=== PATIENT | male | born 1965 | race Caucasian/White ===

== ENCOUNTER 2022-01-24 10:36 | Emergency (ER) | payer OTHER ==
[~2022-01-24] VITALS: Ht 177.8 cm; Wt 113.6 kg
[2022-01-24] MEDS ORDERED: METO50 PO (11:17)
[2022-01-24] MEDS ORDERED: OXYC-490 PO (11:17)
[2022-01-24] MEDS ORDERED: PANT-31 PO (11:17)
[2022-01-24] MEDS ORDERED: METF-1211 PO (11:17)
[2022-01-24] MEDS ORDERED: PREG75 PO (11:17)
[2022-01-24] MEDS ORDERED: LOSA-381 PO (11:17)
[2022-01-24] MEDS ORDERED: GABA-1181 PO (11:17)
[2022-01-24] MEDS ORDERED: BUPR-93 PO (11:17)
[2022-01-24] MEDS ORDERED: CYCL10TA17 PO (11:17)
[2022-01-24] MEDS ORDERED: DULO60CA98 PO (11:17)
[2022-01-24] MEDS ORDERED: ARIP5TAB37 PO (11:17)
[2022-01-24] MEDS ORDERED: ASPI-1444 PO (11:27)
[2022-01-24] MEDS ORDERED: MAGN500T4 PO (11:27)
[2022-01-24] MEDS ORDERED: PROC5TAB54 PO (11:27)
[2022-01-24] MEDS ORDERED: IBUP-2071 PO (11:27)
[2022-01-24] MEDS ORDERED: ATOR40TA28 PO (11:27)
[2022-01-24] MEDS ORDERED: TEST200K IM (12:04)
[2022-01-24] MEDS ORDERED: LOPE2 PO (12:04)
[2022-01-24] MEDS ORDERED: NICO-800 TD (12:04)
[2022-01-24] MEDS ORDERED: NITR0.4T52 SL (12:04)
[2022-01-24] MEDS ORDERED: DIPH25CA85 PO (12:04)
[2022-01-24] MEDS ORDERED: UMEC1DIS IH (12:04)
[2022-01-24] MEDS ORDERED: ALBU8HFA IH (12:04)
[2022-01-24] MEDS ORDERED: CILO100T PO (12:04)
[2022-01-24] MEDS ORDERED: CLOP75TA60 PO (12:04)
[2022-01-24] MEDS ORDERED: GUAIF600 PO (12:04)
[2022-01-24] MEDS ORDERED: ACET-3385 PO (12:04)
[2022-01-24] MEDS ORDERED: HYDROmorphone 2 MG/ML VIAL IM ONE (12:15)
[2022-01-24 13:14] VITALS: BP 141/83
[2022-01-24 13:21] LABS: BASOPHILS % (AUTO) 0.7 % (0.0-2.0); EOSINOPHILS % (AUTO) 1.3 % (1.0-6.0); HEMATOCRIT 40.5 % (41-53); HEMOGLOBIN 13.5 g/dL (13.5-17.5); LYMPHOCYTES # (AUTO) 2.8 K/uL (1.0-4.8); LYMPHOCYTES % (AUTO) 24.1 % (22.0-44.0); MEAN CORPUSCULAR HEMOGLOBIN 28.6 pg (26.0-34.0); MEAN CORPUSCULAR HGB CONC 33.4 G/dL (31.0-37.0); MEAN CORPUSCULAR VOLUME 86 fL (80-100); MONOCYTES # (AUTO) 0.7 K/uL (0.1-1.0); MONOCYTES % (AUTO) 6.2 % (2.0-9.0); NEUTROPHILS # (AUTO) 7.8 K/uL (1.8-7.7); NEUTROPHILS % (AUTO) 67.7 % (40.0-70.0); PLATELET COUNT (AUTO) 273 K/uL (150-450); RED BLOOD CELL COUNT(AUTO) 4.73 MIL/uL (4.50-5.90); RED CELL DISTRIBUTION WIDTH 15.1 % (11.5-14.5)
[2022-01-24 13:32] LABS: ANION GAP 10 mmol/L (8-16); CALCIUM, TOTAL 8.9 mg/dL (8.8-10.5); CARBON DIOXIDE 30 mmol/L (22-29); CHLORIDE 101 mmol/L (98-107); CREATININE 0.78 mg/dL (0.60-1.30); GLOMERULAR FILTR. RATE CALC > 60 mL/min (>60); GLUCOSE,RANDOM 114 mg/dL (70-110); POTASSIUM 3.9 mmol/L (3.5-5.1); SODIUM SERUM 141 mmol/L (136-145); UREA NITROGEN, BLOOD 7 mg/dL (7-18)
[2022-01-24] MEDS ORDERED: CEPH500C3 PO (14:28)
== END 2022-01-24 15:29 | disposition home or self-care (01) ==
LOC: EMS 10:36 → EDBD 10:36 → EMS 15:29
DX: L03.113 Cellulitis of right upper limb (principal); L03.115 Cellulitis of right lower limb; J44.9 Chronic obstructive pulmonary disease, unspecified; E11.9 Type 2 diabetes mellitus without complications; I25.2 Old myocardial infarction; Z79.84 Long term (current) use of oral hypoglycemic drugs; W19.XXXA Unspecified fall, initial encounter; Y93.89 Activity, other specified; Y92.89 Other specified places as the place of occurrence of the external cause; Y99.8 Other external cause status
CPT/HCPCS: 36415; 73090; 73100; 80048; 85025; 93971; 96372; 99285; J1170; 99284

== ENCOUNTER 2022-02-26 15:50 | Emergency (ER) | payer OTHER ==
[~2022-02-26] VITALS: Ht 170.2 cm; Wt 112.0 kg
[~2022-02-26 15:50] MED LIST: ACET-3385 PO; ALBU8HFA IH; ARIP5TAB37 PO; ASPI-1444 PO; ATOR40TA28 PO; BUPR-50 PO; CEPH-558 PO; CILO100T PO; CLOP75TA60 PO; CYCL-448 PO; DIPH25CA85 PO; DULO-113 PO; GABA-1181 PO; GUAIF600 PO; IBUP-2071 PO; LOPE2 PO; LOSA-381 PO; MAGN500T4 PO; METF-1211 PO; METO50 PO; NICO-800 TD; NITR0.4T52 SL; OXYC-490 PO; PANT-31 PO; PREG75 PO; PROC5TAB54 PO; TEST200K IM; UMEC1DIS IH
[2022-02-26] MEDS ORDERED: OxyCODONE HCL/ACETAMINOPHEN 5-325 MG TABLET PO ONE (16:30)
[2022-02-26 16:38] LABS: BASOPHILS % (AUTO) 0.7 % (0.0-2.0); EOSINOPHILS % (AUTO) 1.1 % (1.0-6.0); HEMATOCRIT 38.9 % (41-53); HEMOGLOBIN 13.4 g/dL (13.5-17.5); LYMPHOCYTES # (AUTO) 2.5 K/uL (1.0-4.8); LYMPHOCYTES % (AUTO) 24.9 % (22.0-44.0); MEAN CORPUSCULAR HEMOGLOBIN 29.1 pg (26.0-34.0); MEAN CORPUSCULAR HGB CONC 34.4 G/dL (31.0-37.0); MEAN CORPUSCULAR VOLUME 85 fL (80-100); MONOCYTES # (AUTO) 0.5 K/uL (0.1-1.0); MONOCYTES % (AUTO) 4.9 % (2.0-9.0); NEUTROPHILS # (AUTO) 6.9 K/uL (1.8-7.7); NEUTROPHILS % (AUTO) 68.4 % (40.0-70.0); PLATELET COUNT (AUTO) 258 K/uL (150-450); RED BLOOD CELL COUNT(AUTO) 4.59 MIL/uL (4.50-5.90); RED CELL DISTRIBUTION WIDTH 15.5 % (11.5-14.5)
[2022-02-26 16:45] LABS: ANION GAP 6 mmol/L (8-16); CALCIUM, TOTAL 8.7 mg/dL (8.8-10.5); CARBON DIOXIDE 31 mmol/L (22-29); CHLORIDE 103 mmol/L (98-107); CREATININE 0.88 mg/dL (0.60-1.30); GLOMERULAR FILTR. RATE CALC > 60 mL/min (>60); GLUCOSE,RANDOM 63 mg/dL (70-110); POTASSIUM 3.4 mmol/L (3.5-5.1); SODIUM SERUM 140 mmol/L (136-145); UREA NITROGEN, BLOOD 3 mg/dL (7-18)
[2022-02-26 16:50] LABS: ALANINE AMINOTRANSFERASE 24 U/L (12-78); ALBUMIN 3.6 g/dL (3.4-5.0); ALKALINE PHOSPHATASE 98 U/L (46-116); ASPARTATE AMINOTRANSFERASE 16 U/L (15-37); BILIRUBIN,TOTAL 0.4 mg/dL (0.1-1.0); LIPASE 40 U/L (73-393); TOTAL PROTEIN, SERUM 7.6 g/dL (6.4-8.2)
[2022-02-26 16:53] LABS: LACTIC ACID 1.7 mmol/L (0.4-2.0)
[2022-02-26 17:46] LABS: GLUCOSE,POINT OF CARE 100 MG/DL (70-110)
[2022-02-26 18:00] VITALS: BP 134/69
[2022-02-26] MEDS ORDERED: CEPH-558 PO (18:06)
== END 2022-02-26 18:24 | disposition home or self-care (01) ==
LOC: EMS 15:52
DX: I73.9 Peripheral vascular disease, unspecified (principal); L03.115 Cellulitis of right lower limb; E11.649 Type 2 diabetes mellitus with hypoglycemia without coma; F41.9 Anxiety disorder, unspecified; J44.9 Chronic obstructive pulmonary disease, unspecified; F32.9 Major depressive disorder, single episode, unspecified; E78.00 Pure hypercholesterolemia, unspecified; I25.2 Old myocardial infarction; F20.9 Schizophrenia, unspecified; Z79.84 Long term (current) use of oral hypoglycemic drugs
CPT/HCPCS: 80053; 82962; 83605; 83690; 84484; 85025; 85379; 93005; 93926; 93971; 99285